=== PATIENT | male | born 1990 | race Native Hawaiian/Other Pacific Islander ===

== ENCOUNTER 2020-05-27 15:47 | Outpatient (CLI) | payer OTHER | END 2020-05-27 21:53 | disposition home or self-care (01) | LOC: LABW 15:47 | PROVIDERS: ATTEND Internal Medicine Gastroenterology | DX: K62.89 Other specified diseases of anus and rectum (principal) | CPT/HCPCS: 36415; 83540; 83993; 85652; 86140 ==

== ENCOUNTER 2020-09-08 12:27 | Outpatient (CLI) | payer OTHER | END 2020-09-08 22:03 | disposition home or self-care (01) | LOC: LABW 12:27 | PROVIDERS: ATTEND Nurse Practitioner Family | DX: R19.7 Diarrhea, unspecified (principal); R10.9 Unspecified abdominal pain; K51.90 Ulcerative colitis, unspecified, without complications | CPT/HCPCS: 82272; 83630; 87015; 87045; 87324; 87328; 87329; 87449; 87899 ==

== ENCOUNTER 2021-10-29 12:59 | Outpatient (CLI) | payer OTHER | END 2021-10-29 21:19 | disposition home or self-care (01) | LOC: RAD 12:59 | PROVIDERS: ATTEND Internal Medicine Gastroenterology | DX: K51.019 Ulcerative (chronic) pancolitis with unspecified complications (principal) ==

== ENCOUNTER 2021-12-21 16:45 | Outpatient (CLI) | payer OTHER | END 2021-12-21 19:04 | disposition home or self-care (01) | LOC: RAD 16:45 | PROVIDERS: ATTEND Internal Medicine | DX: M54.2 Cervicalgia (principal) ==

== ENCOUNTER 2022-01-14 12:35 | Outpatient (CLI) | payer OTHER | END 2022-01-14 22:23 | disposition home or self-care (01) | LOC: MRI 12:35 | PROVIDERS: ATTEND Internal Medicine | DX: M54.2 Cervicalgia (principal); M25.519 Pain in unspecified shoulder ==